=== PATIENT | female | born 1975 | race Hispanic/Latino ===

== ENCOUNTER 2017-07-20 12:23 | Outpatient (CLI) | payer OTHER ==
--- NOTE | 2017-07-20 14:45 | ULT ---
THYROID ULTRASOUND: Date: 07/20/17 HISTORY: Huma's thyroid. COMPARISON: None. TECHNIQUE: Sagittal and transverse imaging of the thyroid gland is performed. FINDINGS: Thyroid isthmus is 0.19 cm. Right thyroid lobe measures 0.76 x 3.63 x 1.13 cm. Left thyroid lobe measures 0.76 x 3.24 x 1.00 cm. There is heterogeneity throughout the thyroid gland. No dominant masses or cystic lesions. IMPRESSION: Diminutive thyroid gland with heterogeneous echotexture. Sonographic features are compatible with hi story of Huma's. POS: [facility]
== END 2017-07-20 12:24 | disposition home or self-care (01) ==
LOC: SCSULT 12:23
PROVIDERS: ATTEND Family Medicine
DX: E06.3 Autoimmune thyroiditis (principal)
CPT/HCPCS: 76536

== ENCOUNTER 2022-10-27 12:57 | Emergency (ER) | payer OTHER ==
[2022-10-27 15:43] LABS: #Eosinphils 0.2 thou/uL (0.0-0.7); #Lymphocytes 2.7 thou/uL (1.20-3.40); #Monocytes 0.5 thou/uL (0.11-0.59); #Neutrophils 2.1 thou/uL (1.40-6.50); %Basophils 0.8 % (0.0-1.0); %Eosinophils 2.8 % (0.0-10.0); %Lymphocytes 48.9 % (21.0-51.0); %Monocytes 9.8 % (0.0-10.0); %Neutrophils 37.6 % (42.0-75.0); Hemoglobin 11.3 g/dL (12.0-16.0); Mean Corpuscular HGB CONC 33.1 g/dL (32.0-36.0); Mean Corpuscular Hemoglobin 30.5 pg (27.0-31.0); Mean Corpuscular Volume 92.3 fl (78.0-98.0); Mean Platelet Volume 8.3 fL (7.4-10.4); Platelet Count 265 10x3/uL (130-400); RBC Distribution Width 13.7 % (11.5-14.5); Red Blood Cell (RBC) Count 3.71 mill/uL (4.20-5.40); White Blood Cell (WBC) Count 5.4 10x3/uL (4.8-10.8)
[2022-10-27 16:09] LABS: ALT (SGPT) 32 U/L (8-55); AST (SGOT) 43 U/L (5-34); Albumin 4.3 g/dL (3.5-5.0); Alkaline Phosphatase 128 U/L (40-110); Anion Gap 8 mmol/L (10-20); BUN (Urea Nitrogen) 10 mg/dL (7.0-18.7); Bilirubin, Total 0.2 mg/dL (0.2-1.2); Calc. Creatinine Clearance 0 mL/min (70-130); Calcium 8.8 mg/dL (7.8-10.44); Carbon Dioxide 28 mmol/L (22-29); Chloride 106 mmol/L (98-107); Estimated GFR 108; Globulin 3.6 g/dL (2.4-3.5); Glucose 104 mg/dL (70-105); Lipase 49 U/L (8-78); Potassium 4.4 mmol/L (3.5-5.1); Protein, Total 7.9 g/dL (6.0-8.3); Sodium 138 mmol/L (136-145)
== END 2022-10-27 18:52 | disposition home or self-care (01) ==
LOC: ERS 12:57
DX: M25.512 Pain in left shoulder (principal); R07.9 Chest pain, unspecified; E03.9 Hypothyroidism, unspecified
CPT/HCPCS: 36415; 71045; 80053; 83690; 84484; 85025; 93005

== ENCOUNTER 2022-12-13 22:25 | Emergency (ER) | payer OTHER ==
[2022-12-13] MEDS ORDERED: Diazepam 5 MG TAB ONE (23:12)
[2022-12-14] MEDS ORDERED: Midazolam HCl 2 mg/2 ml Vial ONE (00:23)
== END 2022-12-14 00:56 | disposition home or self-care (01) ==
LOC: ERS 22:25
DX: R07.9 Chest pain, unspecified (principal); F41.9 Anxiety disorder, unspecified; F41.0 Panic disorder [episodic paroxysmal anxiety]; E03.9 Hypothyroidism, unspecified
CPT/HCPCS: 93005; 96372; 99284; J2250